=== PATIENT | male | born 1985 | race Caucasian/White ===

== ENCOUNTER 2021-03-21 01:53 | Observation (INO) | payer OTHER, SELFPAY ==
[2021-03-21] VITALS (13 sets, daily range): BP systolic 108–141; BP diastolic 66–105; PULSE 82–104; RESP 16–24; TEMP 36.4–36.9; O2SAT 93–98; BMI 44.9; BMI 45.8
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
[2021-03-21 02:25] LABS: Basophils % 0.2 % (0.1-2.0); Eosinophils # 0.5 K/mm3 (0.0-0.4); Hematocrit 38.7 % (42.0-52.0); Hemoglobin 13.1 g/dL (14.1-18.0); Lymphocytes # 2.6 K/mm3 (0.7-4.5); Mean Corpuscular HGB Conc 33.9 g/dL (31.8-35.4); Mean Corpuscular Hemoglobin 30.3 pg (27.0-31.2); Mean Corpuscular Volume 89.4 fl (80-94); Monocytes # 1.3 K/mm3 (0.1-1.0); Monocytes % 7.2 % (1.7-9.3); Neutrophils # 12.9 K/mm3 (1.8-7.8); Neutrophils % 74.6 % (37.0-80.0); Platelet Count 319 K/mm3 (142-424); Red Blood Count 4.32 M/mm3 (4.60-6.20); Red Cell Distribution Width 13.6 % (11.5-17.5); White Blood Count 17.2 K/mm3 (4.8-10.8)
--- NOTE | 2021-03-21 02:27 | PC.NURSE ---
pt gone to radiology
[2021-03-21 02:29] LABS: Alanine Aminotransferase 74 U/L (12-78); Albumin/Globulin Ratio 1.3 (1.1-1.8); Alkaline Phosphatase 101 U/L (38-126); Anion Gap 14.1 mEq/L (5-15); Aspartate Amino Transferase 45 U/L (17-59); Bilirubin,Total 0.3 mg/dl (0.2-1.3); Blood Urea Nitrogen 14 mg/dl (9-20); Calcium 8.4 mg/dl (8.4-10.2); Carbon Dioxide 21 mmol/L (22.0-30.0); Chloride 110 mmol/L (98-107); Creatinine Clearance Estimated 143 mL/min (50-200); Estimated Glomerular Filt Rate 109 ml/min (>60); GFR (African American) 132 ML/MIN (>60); Glucose 113 mg/dl (74-100); MANUAL DIFFERENTIAL MANUAL DIFFERENTIAL (MANUAL DIFF); Potassium 4.1 mmoL/L (3.5-5.1); Sodium 141 mmol/L (136-145)
[2021-03-21 02:34] LABS: C-Reactive Protein 131.9 mg/L (0-4)
[2021-03-21 02:47] LABS: Eosinophils % 4 % (0-3); Lymphocytes % 17 % (10-50); Monocytes % 17 % (2-9); Neutrophils % 59 % (42-76); Platelet Estimate Normal; RBC Morphology Normal; Total Cells Counted 100
[2021-03-21 02:49] LABS: Procalcitonin 0.121 ng/mL (0.0-2.0)
--- NOTE | 2021-03-21 02:51 | HMH.EDSKAF ---
ED Disposition Clinical Impression: Tobacco use, SIRS (systemic inflammatory response syndrome) Cellulitis Qualifiers: Site of cellulitis: extremity Site of cellulitis of extremity: lower extremity Laterality: right Qualified Code(s): L03.115 - Cellulitis of right lower limb Obesity Qualifiers: Obesity type: due to excess calories Obesity classification: adult class 3 (BMI >= 40) Serious obesity comorbidity presence: with serious comorbidity Body mass index: BMI 40.0-44.9 Qualified Code(s): E66.01 - Morbid (severe) obesity due to excess calories Disposition: Admitted as Observation Condition on Discharge: Serious - Critical Care Critical Care Time: No Attestation: On 03/21/21, the high probability of a clinically significant, sudden or life threatening deterioration of the following system(s) required my full and direct attention, intervention and personal management. The time I documented below is in addition to time spent performing reported procedures but includes the following listed in this critical care notation. Medical Decision Making - Medical Records Medical records reviewed: Yes: I reviewed the patient's medical records. - Simón Inquiry Pt receiving controlled substance: No Vital Signs: 03/21/21 02:05 03/21/21 02:30 03/21/21 03:00 Temperature 98.2 F Temperature Source Oral Pulse Rate 95 H 98 H Pulse Rate [Right] 85 Respiratory Rate 24 Blood Pressure 131/74 115/78 Blood Pressure [Right Arm] 141/97 H Blood Pressure Mean [Right Arm] 111 Blood Pressure Source [Right Arm] Automatic Cuff 02 Sat by Pulse Oximetry 94 L 94 L 94 L Oxygen Delivery Method Room Air - Lab Data Lab results reviewed: Yes: I reviewed the patient's lab results. Lab Results 03/21/21 01:54: WBC 17.2 H, RBC 4.32 L, Hgb 13.1 L, Hct 38.7 L, MCV 89.4, MCH 30.3, MCHC 33.9, RDW 13.6, Plt Count 319, MPV 8.0, Neut % (Auto) 74.6, Lymph % (Auto) 15.0, [place] % (Auto) 7.2, Eos % (Auto) 3.0, Baso % (Auto) 0.2, Neut # (Auto) 12.9 H, Lymph # (Auto) 2.6, [place] # (Auto) 1.3 H, Eos # (Auto) 0.5 H, Baso # (Auto) 0.0, Total Counted 100, Neutrophils % (Manual) 59, Lymphocytes % (Manual) 17, Atypical Lymphs % 3.0, Monocytes % (Manual) 17 H, Eosinophils % (Manual) 4 H, Platelet Estimate Normal, RBC Morphology Normal, ESR 56 H 03/21/21 01:54: Sodium 141, Potassium 4.1, Chloride 110 H, Carbon Dioxide 21 L, Anion Gap 14.1, BUN 14, Creatinine 0.80, Estimated Creat Clear 143, Estimated GFR 109, Est GFR ( Amer) 132, Glucose 113 H, Calcium 8.4, Total Bilirubin 0.3, AST 45, ALT 74, Alkaline Phosphatase 101, C-Reactive Protein 131.9 H, Total Protein 7.0, Albumin 4.0, Globulin 3.0, Albumin/Globulin Ratio 1.3, Procalcitonin 0.121 03/21/21 03:02: Lactate 1.1 Result diagrams: 03/21/21 01:54 03/21/21 01:54 Orders (Tests/Meds): ED MEDICATIONS Generic Name Dose Route Start Last Admin Trade Name Freq PRN Reason Stop Dose Admin Sodium Chloride 1,000 mls @ 999 mls/hr 03/21/21 02:00 03/21/21 02:01 Sod Chlor 0.9% 1000ml Bag IV 03/21/21 03:00 999 mls/hr .Q1H1M MARIOLA Administration Vancomycin HCl 2,000 mg/ 500 mls @ 125 mls/hr 03/21/21 03:15 03/21/21 03:25 Sodium Chloride IV 04/04/21 03:14 125 mls/hr Q24H MARIOLA Administration Protocol Nicotine 21 mg 03/21/21 03:12 03/21/21 03:12 Nicotine 21mg/24hr Patch TD 04/20/21 03:11 21 mg DAILYP PRN Administration Nicotine Cravings Discontinued Medications Generic Name Dose Route Start Last Admin Trade Name Freq PRN Reason Stop Dose Admin Hydromorphone HCl 1 mg 03/21/21 03:28 03/21/21 03:43 Hydromorphone 2mg/Ml Syringe IV 03/21/21 03:29 1 mg ONCE ONE Administration Vancomycin HCl 2,000 mg/ 250 mls @ 125 mls/hr 03/21/21 03:10 03/21/21 03:48 Sodium Chloride IV 04/04/21 03:09 Not Given Q12 [facility] Protocol Ketorolac Tromethamine 30 mg 03/21/21 01:58 03/21/21 02:01 Ketorolac 30mg/Ml Vial IV 03/21/21 01:59 30 mg ONCE ONE A
[2021-03-21 02:56] LABS: Erythrocyte Sedimentation Rate 56 mm/hr (0-15)
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
--- NOTE | 2021-03-21 03:22 | PC.NURSE ---
Vanco dosing per Night Watch.
--- NOTE | 2021-03-21 03:23 | PC.NURSE ---
Pt states his T-dap is current
[2021-03-21 03:28] LABS: Coronavirus 19, PCR Not Detected (NotDetected); Influenza A, PCR Not Detected (NotDetected); Influenza B, PCR Not Detected (NotDetected)
[2021-03-21 03:39] LABS: Lactic Acid 1.1 mmol/L (0.7-2.1)
--- NOTE | 2021-03-21 05:13 | PC.NURSE ---
patient up to floor via wheelchair.
--- NOTE | 2021-03-21 05:48 | PC.NURSE ---
LEFT INSIDE THIGH
--- NOTE | 2021-03-21 05:51 | PC.NURSE ---
RIGHT INSIDE CALF
[2021-03-21 06:17] LABS: Basophils % 0.2 % (0.1-2.0); Chloride 109 mmol/L (98-107); Eosinophils # 0.5 K/mm3 (0.0-0.4); Eosinophils % 3.3 % (0.1-12.0); Hematocrit 35.4 % (42.0-52.0); Hemoglobin 11.8 g/dL (14.1-18.0); Lymphocytes # 2.2 K/mm3 (0.7-4.5); Lymphocytes % 15.1 % (10-50); Mean Corpuscular HGB Conc 33.5 g/dL (31.8-35.4); Mean Corpuscular Hemoglobin 30.7 pg (27.0-31.2); Mean Corpuscular Volume 91.8 fl (80-94); Mean Platelet Volume 8.1 fl (7.4-10.4); Neutrophils # 10.6 K/mm3 (1.8-7.8); Neutrophils % 74.4 % (37.0-80.0); Platelet Count 299 K/mm3 (142-424); Potassium 4.3 mmoL/L (3.5-5.1); Red Blood Count 3.85 M/mm3 (4.60-6.20); Red Cell Distribution Width 13.5 % (11.5-17.5); Sodium 139 mmol/L (136-145); White Blood Count 14.2 K/mm3 (4.8-10.8)
[2021-03-21 06:20] LABS: Anion Gap 13.3 mEq/L (5-15); Blood Urea Nitrogen 13 mg/dl (9-20); Carbon Dioxide 21 mmol/L (22.0-30.0); Creatinine Clearance Estimated 159 mL/min (50-200); Estimated Glomerular Filt Rate 127 ml/min (>60); GFR (African American) 154 ML/MIN (>60); Glucose 108 mg/dl (74-100)
--- NOTE | 2021-03-21 07:14 | HMH.PHAVTE ---
[facility] Pharmacy VTE Monitoring - Patient Demographics Admission date: 03/21/21 Report Date: 03/21/21 Time: 07:14 Allergies/Adverse Reactions: Patient Allergies morphine Allergy (Verified 03/21/21 01:56) Penicillins Allergy (Verified 03/21/21 01:56) Height: 1.85 m Weight: 156.745 kg Patient Problems: Current Active Problems Cellulitis (Acute) Obesity (Acute) Tobacco use (Acute) SIRS (systemic inflammatory response syndrome) (Acute) - VTE Risk Labs: VTE Related Lab Results Hgb 11.8 g/dL (14.1-18.0) L 03/21/21 05:53 Hct 35.4 % (42.0-52.0) L 03/21/21 05:53 Plt Count 299 K/mm3 (142-424) 03/21/21 05:53 BUN 13 mg/dl (9-20) 03/21/21 05:53 Creatinine 0.70 mg/dl (0.66-1.25) 03/21/21 05:53 Estimated Creat Clear 159 mL/min (50-200) 03/21/21 05:53 Was VTE Risk Assessment Performed: Yes VTE Score: 1 VTE Risk Level: Very Low Risk - Prophylaxis VTE Prophylaxis Ordered?: Yes Types of VTE Prophylaxis: TEDS Knee High Location of Applied Device: Left Leg
--- NOTE | 2021-03-21 07:15 | HMH.PHAINT ---
MEDICATION RECONCILIATION COMPLETED ON PATIENT USING EXTERNAL FILL HISTORY FROM PHARMACY. -DAWN ANNE, MILLID
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
[2021-03-22] VITALS (10 sets, daily range): BP systolic 140–154; BP diastolic 76–100; PULSE 84–98; RESP 16–24; TEMP 36.5–36.8; O2SAT 94–96; BMI 45.8
--- NOTE | 2021-03-22 03:43 | PC.NURSE ---
pt has had no acute changes. c/o of pain throughout shift. but rating at a lower scale than previously. 03/17. iv patent and infusing per order. ambulates to bathroom. ice packs were applied to help alleviate pain to bilateral legs. pt reports this did provide some relief. prn meds given per dec. call light in reach. will continue to monitor
[2021-03-22 06:40] LABS: Basophils % 0.3 % (0.1-2.0); Eosinophils # 0.3 K/mm3 (0.0-0.4); Eosinophils % 3.3 % (0.1-12.0); Hematocrit 35.5 % (42.0-52.0); Hemoglobin 11.5 g/dL (14.1-18.0); Lymphocytes # 1.3 K/mm3 (0.7-4.5); Lymphocytes % 15.4 % (10-50); Mean Corpuscular HGB Conc 32.5 g/dL (31.8-35.4); Mean Corpuscular Hemoglobin 30.6 pg (27.0-31.2); Mean Corpuscular Volume 94.2 fl (80-94); Mean Platelet Volume 7.9 fl (7.4-10.4); Monocytes # 0.6 K/mm3 (0.1-1.0); Monocytes % 7.8 % (1.7-9.3); Neutrophils % 73.3 % (37.0-80.0); Platelet Count 258 K/mm3 (142-424); Red Blood Count 3.77 M/mm3 (4.60-6.20); Red Cell Distribution Width 13.5 % (11.5-17.5); White Blood Count 8.2 K/mm3 (4.8-10.8)
[2021-03-22 06:56] LABS: Chloride 106 mmol/L (98-107); Potassium 3.9 mmoL/L (3.5-5.1); Sodium 136 mmol/L (136-145)
[2021-03-22 06:59] LABS: Anion Gap 7.9 mEq/L (5-15); Blood Urea Nitrogen 14 mg/dl (9-20); Calcium 8.1 mg/dl (8.4-10.2); Carbon Dioxide 26 mmol/L (22.0-30.0); Creatinine Clearance Estimated 139 mL/min (50-200); Estimated Glomerular Filt Rate 109 ml/min (>60); GFR (African American) 132 ML/MIN (>60); Glucose 119 mg/dl (74-100)
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
[2021-03-22 14:43] LABS: Chloride 106 mmol/L (98-107); Potassium 4.4 mmoL/L (3.5-5.1); Sodium 139 mmol/L (136-145)
[2021-03-22 14:45] LABS: Blood Urea Nitrogen 14 mg/dl (9-20); Creatinine Clearance Estimated 159 mL/min (50-200); Estimated Glomerular Filt Rate 127 ml/min (>60); GFR (African American) 154 ML/MIN (>60)
[2021-03-22 14:46] LABS: Anion Gap 9.4 mEq/L (5-15); Calcium 8.3 mg/dl (8.4-10.2); Carbon Dioxide 28 mmol/L (22.0-30.0); Glucose 111 mg/dl (74-100)
[2021-03-22 15:35] LABS: Vancomycin,Trough 7.6 ug/mL (5.0-10.0)
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
--- NOTE | 2021-03-22 16:53 | PC.NURSE ---
patient is receiving blood pressure medicine tonight - nurse looked over
[2021-03-23 01:43] VITALS: RESP 20
--- NOTE | 2021-03-23 03:55 | PC.NURSE ---
no acute changes. pt has been requesting pain medication. on first assessment pt rated 10/10. has decreased to 7/10 for highest pain level. prn meds given per request. iv patent and infusing. vss. call light in reach. will continue to monitor
[2021-03-23 04:00] VITALS: BP 140/77; PULSE 88; RESP 18; TEMP 37.1; O2SAT 96
[2021-03-23 05:06] VITALS: RESP 22
[2021-03-23 05:22] VITALS: BMI 46.0
[2021-03-23 08:00] VITALS: BP 121/74; PULSE 89; RESP 16; TEMP 36.7; O2SAT 97
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
[2021-03-23 08:41] VITALS: RESP 20
[2021-03-23 13:09] VITALS: RESP 16
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
== END 2021-03-23 15:30 | disposition home or self-care (01) ==
LOC: ER 03:19 → 2ND 03:24
PROVIDERS: Admitting Provider Family Medicine; Emergency Provider Emergency Medicine; Visit Provider Family Medicine
DX: M79.661 Pain in right lower leg (principal); M79.662 Pain in left lower leg; F17.210 Nicotine dependence, cigarettes, uncomplicated; L03.115 Cellulitis of right lower limb; L03.116 Cellulitis of left lower limb; V29.9XXA Motorcycle rider (driver) (passenger) injured in unspecified traffic accident, initial encounter; E66.01 Morbid (severe) obesity due to excess calories; Z68.41 Body mass index [BMI] 40.0-44.9, adult
CPT/HCPCS: 36415; 71046; 72170; 73564; 80048; 80053; 80202; 83605; 84145; 85007; 85025; 85651; 86140; 87040; 93306; 93308; 93970; 96365; 96367; 96375; 99284; G0378; J2405; J3370; U0003

== ENCOUNTER 2021-03-23 20:49 | Emergency (ER) | payer OTHER, SELFPAY ==
[2021-03-23 22:24] VITALS: BP 139/89; PULSE 109; RESP 16; TEMP 36.7; O2SAT 95; BMI 44.9
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
[2021-03-23 22:44] VITALS: BP 142/84; PULSE 98; RESP 18; TEMP 36.7; O2SAT 97
--- NOTE | 2021-03-23 22:47 | PC.NURSE ---
Pt has multiple wounds on bilateral lower ext. and right elbow. All wounds cleaned with Hibicolens soap and redressed with Kerlex and mesh covering. Wounds are pink without drainage.
== END 2021-03-23 22:50 | disposition home or self-care (01) ==
PROVIDERS: Emergency Provider Emergency Medicine
DX: L03.115 Cellulitis of right lower limb (principal); L03.116 Cellulitis of left lower limb; V29.9XXA Motorcycle rider (driver) (passenger) injured in unspecified traffic accident, initial encounter; F17.210 Nicotine dependence, cigarettes, uncomplicated
CPT/HCPCS: 99203; G0463

== ENCOUNTER 2023-08-03 14:05 | Emergency (ER) | payer OTHER, SELFPAY ==
[2023-08-03 14:06] VITALS: BP 134/87; PULSE 86; RESP 18; TEMP 36.7; O2SAT 93; BMI 48.7
--- NOTE | 2023-08-03 14:24 | ECG_ITS ---
APPROVED REPORT Exam: Resting ECG HR:79 bpm ECG Measurements Heart Rate 79 AXES LA 170 P 4 QRSd 95 QRS 6 QT 350 T 63 QTc 385 Conclusion SINUS RHYTHM NORMAL ECG UNCONFIRMED REPORT Electronically signed by : Jm Apodaca MD 08/03/2023 17:02:58
--- NOTE | 2023-08-03 14:38 | PC.NURSE ---
PT PROVIDED A PILLOW FOR COMFORT, NO FURTHER NEEDS AT THIS TIME
--- NOTE | 2023-08-03 15:06 | PC.NURSE ---
DR SPEAR AT BEDSIDE
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
--- NOTE | 2023-08-03 15:15 | HMH.EDGENADL ---
Discharge Plan Disposition Patient Disposition: Home, Self-Care Prescriptions Prescriptions: New clindamycin HCl 150 mg capsule 450 mg PO Q8H 7 Days Qty: 63 0RF losartan 100 mg tablet 100 mg PO DAILY Qty: 30 0RF ibuprofen 800 mg tablet 800 mg PO TID PRN (Reason: pain) 7 Days Qty: 20 0RF prednisone 50 mg tablet 50 mg PO DAILY 5 Days Qty: 5 0RF Rx Instructions: Please begin 1 day after ED visit cyclobenzaprine 5 mg tablet 5 mg PO TID PRN (Reason: muscle spasm) 5 Days Qty: 15 0RF No Action ibuprofen 800 MG tablet 800 mg PO Q8HP PRN (Reason: Moderate Pain) clindamycin HCl 300 MG capsule 300 mg PO TID Qty: 21 0RF oxycodone-acetaminophen 1 EACH tablet 1 tab PO Q6H PRN (Reason: Moderate To Severe Pain) Qty: 12 0RF Referrals Follow up/Referrals: Vitaliy Back APRN [Primary Care Provider] - See instructions Activity Restrictions/Add. Instructions Additional Instructions/Restrictions: Follow-up with physical therapy and with your primary care doctor regarding your back pain. Follow-up with dentist regarding your dental pain and facial cellulitis. Return with any worsening symptoms. Clinical Impressions Clinical Impression: Sciatica, Lumbar strain, Pulpitis, Cellulitis of face, Hypertension Instructions Patient Instructions: DI for Low Back Pain Discharge ED Provider: Jose Veras General Adult HPI General Chief complaint: Back Pain/Injury Stated complaint: ON AND OFF CHEST PAINS, LOWER BACK PAIN Time Seen by Provider: 08/03/23 15:05 Mode of Arrival: Wheelchair Source of Information: Patient Limitations: No Limitations Description of Symptoms (Recalled from ER Triage Doc. by RN): Patient states that approx 10 days ago he helped a friend with a roof and thinks that he may have pulled something in his lower back. Complaint of right lower back pain that radiates down his leg. States that it is just continuing to get worse. History of Present Illness HPI narrative: Patient is a 38-year-old male here with multiple complaints. Primarily here for back pain. States that he was working on a roof and strained his lower back and since that time has had severe pain went to [facility] emergency department where he had a lumbar spine x-ray which was told to be normal. Denies any lower extremity paralysis denies any saddle anesthesia no bowel or bladder incontinence or urinary retention. No history of injection drug use no history of cancer. States his pain has been so bad he was been able to get to his primary care doctor for other concerns including refill of his blood pressure medication including losartan 100 mg. Also he has pain and swelling over one of his maxillary molars and facial swelling and tenderness which he asked me to take a look at as well. States he has a good relation with his primary care doctor but the pain is kept him from being able to go to an appointment recently. Denies any other significant medical problems. Related Data Home Medications Medication Instructions Recorded Confirmed ibuprofen 800 mg tablet 800 mg PO Q8HP PRN Moderate Pain 03/21/21 03/21/21 Previous Rx's Medication Instructions Recorded clindamycin HCl 300 mg capsule 300 mg PO TID #21 caps 03/23/21 oxycodone-acetaminophen 10 mg-325 1 tab PO Q6H PRN Moderate To 03/23/21 mg tablet Severe Pain #12 tabs clindamycin HCl 150 mg capsule 450 mg PO Q8H 7 days #63 caps 08/03/23 cyclobenzaprine 5 mg tablet 5 mg PO TID PRN muscle spasm 5 08/03/23 days #15 tabs ibuprofen 800 mg tablet 800 mg PO TID PRN pain 7 days #20 08/03/23 tabs losartan 100 mg tablet 100 mg PO DAILY #30 tabs 08/03/23 prednisone 50 mg tablet 50 mg PO DAILY 5 days #5 tabs 08/03/23 Allergies Allergy/AdvReac Type Severity Reaction Status Date / Time morphine Allergy Verified 03/21/21 01:56 Penicillins Allergy Verified 03/21/21 01:56 [facility] Disclaimer: The information contained in this section may bain
[2023-08-03 17:10] VITALS: BP 134/98; PULSE 75; RESP 18; TEMP 36.8; O2SAT 97
== END 2023-08-03 17:10 | disposition home or self-care (01) ==
PROVIDERS: Emergency Provider Emergency Medicine; PCP Nurse Practitioner
DX: S39.012A Strain of muscle, fascia and tendon of lower back, initial encounter (principal); M54.30 Sciatica, unspecified side; L03.211 Cellulitis of face; I10 Essential (primary) hypertension; K04.01 Reversible pulpitis; F17.210 Nicotine dependence, cigarettes, uncomplicated; X50.0XXA Overexertion from strenuous movement or load, initial encounter
CPT/HCPCS: 72131; 93005; 96372; 99284

== ENCOUNTER 2024-07-23 19:50 | Emergency (ER) | payer OTHER, SELFPAY ==
--- NOTE | 2024-07-23 19:48 | ECG_ITS ---
APPROVED REPORT Exam: Resting ECG HR:95 bpm ECG Measurements Heart Rate 95 AXES FL 171 P 25 QRSd 86 QRS -8 QT 324 T 55 QTc 377 Conclusion SINUS RHYTHM ABNORMAL ECG UNCONFIRMED REPORT Electronically signed by : ROXI JORDAN, 07/24/2024 00:17:07
[2024-07-23 19:51] VITALS: BP 151/97; PULSE 104; RESP 18; TEMP 36.6; O2SAT 96; BMI 48.7
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
--- NOTE | 2024-07-23 20:04 | CT_ITS ---
PROCEDURE INFORMATION: Exam: CTA Chest With Contrast Exam date and time: 07/23/2024 9:08 PM Age: 39 years old Clinical indication: Pain; Chest pressure; Additional info: Acute chest pain acute abdominal pain TECHNIQUE: Imaging protocol: Computed tomographic angiography of the chest with contrast. Exam focused on the arteries. 3D rendering (Not supervised by radiologist): MIP and/or 3D reconstructed images were created by the technologist. Radiation optimization: All CT scans at this facility use at least one of these dose optimization techniques: automated exposure control; mA and/or kV adjustment per patient size (includes targeted exams where dose is matched to clinical indication); or iterative reconstruction. Contrast material: ISOVUE; Contrast volume: 80 ml; Contrast route: INTRAVENOUS (IV); COMPARISON: 1. CR XR CHEST 2V 03/21/2021 3:[address] ABDOMEN PELVIS W CON 07/23/2024 9:08 PM 3. CA VENOUS DOPPLER UE BI 03/21/2021 2:24 PM FINDINGS: Pulmonary arteries: There is dilation of the main pulmonary artery as well as the major branch pulmonary arteries. This may reflect underlying pulmonary hypertension. There is no evidence for clinically relevant pulmonary arterial filling defect. Tiny distal filling defects may be present but are of dubious clinical significance. Aorta: Unremarkable. No aortic aneurysm. No aortic dissection. Lungs: There is some scarring at the lung bases. There is mild dependent consolidative change in the medial right lower lobe which could reflect early or resolving infection. Pleural spaces: Unremarkable. No pneumothorax. No pleural effusion. Heart: There is a small pericardial effusion. Lymph nodes: There are mildly prominent mediastinal lymph nodes which are nonenlarged. There are calcified mediastinal lymph nodes likely reflecting prior granulomatous disease. Intraperitoneal space: Please see the dedicated interpretation of abdomen and pelvis for findings in that region. Bones/joints: Unremarkable. No acute fracture. Soft tissues: There is bilateral gynecomastia. IMPRESSION: 1. There is mild dependent consolidative change in the medial right lower lobe which could reflect early or resolving infection. 2. Please see the dedicated interpretation of abdomen and pelvis for findings in that region. 3. Findings which suggest underlying pulmonary arterial hypertension. 4. No evidence for clinically relevant pulmonary arterial filling defect.
--- NOTE | 2024-07-23 20:04 | CT_ITS ---
PROCEDURE INFORMATION: Exam: CT Abdomen And Pelvis With Contrast Exam date and time: 07/23/2024 9:08 PM Age: 39 years old Clinical indication: Abdominal pain; Additional info: Acute chest pain acute abdominal pain TECHNIQUE: Imaging protocol: Computed tomography of the abdomen and pelvis with contrast. 3D rendering (Not supervised by radiologist): MIP and/or 3D reconstructed images were created by the technologist. Radiation optimization: All CT scans at this facility use at least one of these dose optimization techniques: automated exposure control; mA and/or kV adjustment per patient size (includes targeted exams where dose is matched to clinical indication); or iterative reconstruction. Contrast material: ISOVUE; Contrast volume: 80 ml; Contrast route: IV; COMPARISON: 1. CR XR PELVIS 1-2V 03/21/2021 3:[address] ANGIO CHEST PE PROTOCOL 07/23/2024 9:[address] LUMBAR SPINE WO CON 08/03/2023 3:39 PM FINDINGS: Lungs: There is some scarring at the lung bases which is nonspecific. Liver: Normal. Gallbladder and biliary ducts: No acute process. Pancreas: There is fatty replacement of the pancreas. Spleen: Normal. Adrenal glands: The adrenal glands appear normal. Kidneys and ureters: There are no soft tissue renal masses or hydronephrosis. Stomach and bowel: There is large volume stool throughout the colon. Appendix: No evidence of appendicitis. Intraperitoneal space: Unremarkable. Vasculature: The abdominal aorta and its major branches appear normal without evidence of aneurysm or stenosis. There are pelvic phleboliths. Lymph nodes: No lymphadenopathy. Urinary bladder: Unremarkable as visualized. Reproductive: No acute process. Bones/joints: The visualized osseous structures of the abdomen and pelvis appear normal for patient age. Soft tissues: There is mild soft tissue dependent edema in the subcutaneous regions. There are fat containing bilateral inguinal hernias. IMPRESSION: No acute inflammatory or obstructive process is identified. Incidental findings are described within the findings section.
[2024-07-23] MEDS: BELLADONNA ALKALOIDS 60 ML ML PO (20:11)
[2024-07-23] MEDS: KETOROLAC 30MG/ML VIAL 15 MG IV (20:11)
[2024-07-23] MEDS: ACETAMINOPHEN 500MG TAB 1000 MG PO (20:11)
[2024-07-23 20:15] LABS: Basophils # 0.1 K/mm3 (0-0.2); Basophils % 0.6 % (0.1-2.0); Eosinophils # 0.5 K/mm3 (0.0-0.4); Eosinophils % 3.4 % (0.1-12.0); Hematocrit 45.6 % (42.0-52.0); Hemoglobin 15.1 g/dL (14.1-18.0); Lymphocytes # 2.6 K/mm3 (0.7-4.5); Lymphocytes % 18.4 % (10-50); Mean Corpuscular HGB Conc 33.1 g/dL (31.8-35.4); Mean Corpuscular Hemoglobin 30.4 pg (27.0-31.2); Mean Corpuscular Volume 91.8 fl (80-94); Mean Platelet Volume 7.9 fl (7.4-10.4); Monocytes % 6.8 % (1.7-9.3); Neutrophils # 10.1 K/mm3 (1.8-7.8); Neutrophils % 70.7 % (37.0-80.0); Platelet Count 315 K/mm3 (142-424); Red Blood Count 4.97 M/mm3 (4.60-6.20); Red Cell Distribution Width 13.6 % (11.5-17.5); White Blood Count 14.3 K/mm3 (4.8-10.8)
[2024-07-23 20:20] LABS: INR 0.94 (0.9-1.1); Prothrombin Time 10.6 seconds (10.1-12.5)
[2024-07-23 20:21] LABS: Alanine Aminotransferase 36 U/L (12-78); Albumin Level 4.5 g/dl (3.5-5.0); Albumin/Globulin Ratio 1.6 (1.1-1.8); Alkaline Phosphatase 72 U/L (38-126); Anion Gap 6.5 mEq/L (5-15); Aspartate Amino Transferase 29 U/L (17-59); Bilirubin,Total 0.5 mg/dl (0.2-1.3); Blood Urea Nitrogen 23 mg/dl (9-20); Calcium 9.2 mg/dl (8.4-10.2); Carbon Dioxide 30 mmol/L (22.0-30.0); Chloride 104 mmol/L (98-107); Creatinine Clearance Estimated 163 mL/min (50-200); Estimated Glomerular Filt Rate 125 ml/min (>60); GFR (African American) 151 ML/MIN (>60); Globulin 2.9 g/dL (1.3-3.2); Glucose 103 mg/dl (74-100); Potassium 4.5 mmoL/L (3.5-5.1); Sodium 136 mmol/L (136-145); Total Protein,Serum 7.4 g/dl (6.3-8.2)
[2024-07-23 20:37] LABS: Troponin I < 0.01 ng/ml (0.00-0.034)
[2024-07-23 20:55] LABS: Lipase 339 U/L (23-300)
[2024-07-23 21:05] LABS: NT Pro Brain Natriuretic Pep. < 20.0 pg/mL (0-125)
[2024-07-23] MEDS: SODIUM CHLORIDE 0.9% 10ML SYR (RAD ONLY) 10 ML IV (21:10)
[2024-07-23] MEDS: 0.9 % SODIUM CHLORIDE 50 ML VIAL IV (21:10)
[2024-07-23] MEDS: IOPAMIDOL-370 (76%);100ML BOTTLE 80 ML IV (21:10)
[2024-07-23 21:27] LABS: Microscopic, Urine URINE MICROSCOPIC (MICROSCOPIC)
[2024-07-23 21:28] LABS: Appearance,Urine CLEAR (Clear); Bilirubin,Urine Negative (Negative); Blood, Urine TRACE-I (Negative); Color,Urine YELLOW (Yellow); Glucose,Urine (UA) Negative (Negative); Ketones,Urine Negative (Negative); Leukocyte Esterase,Urine Negative (Negative); Nitrate,Urine Negative (Negative); Protein,Urine Negative (Negative); Specific Gravity, Urine 1.025 (1.005-1.030); Urobilinogen,Urine 0.2 EU/dl (0.2)
[2024-07-23 21:39] LABS: Bacteria,Urine Trace /lpf; Mucus,Urine Trace /lpf; RBC,Urine Occasional #/hpf (0-3); WBC,Urine Occasional #/hpf (0-3)
[2024-07-23] MEDS: HYDROMORPHONE 2MG/ML SYRINGE 0.5 MG IV (21:51)
[2024-07-23] MEDS: 0.9 % SODIUM CHLORIDE 1000ML 1,000 ML 999 ML IV (21:51)
[2024-07-23 22:42] VITALS: BP 133/94; PULSE 85; RESP 18; TEMP 36.8; O2SAT 95
[2024-07-23 22:45] VITALS: BP 133/94; PULSE 93; RESP 20; TEMP 36.7; O2SAT 95
== END 2024-07-23 22:46 | disposition home or self-care (01) ==
PROVIDERS: Physician Assistant; Emergency Provider Emergency Medicine; PCP Nurse Practitioner
DX: K85.90 Acute pancreatitis without necrosis or infection, unspecified (principal); R07.9 Chest pain, unspecified
CPT/HCPCS: 71275; 74177; 80053; 81001; 83690; 83880; 84484; 85025; 85610; 93005; 96361; 96374; 96375; 99285; J1171; J1885; J7030; Q9967

== ENCOUNTER 2024-09-10 14:35 | Outpatient (CLI) | payer OTHER, SELFPAY ==
[2024-09-10 15:09] LABS: Basophils # 0.1 K/mm3 (0-0.2); Basophils % 0.7 % (0.1-2.0); Eosinophils # 0.5 K/mm3 (0.0-0.4); Eosinophils % 4.1 % (0.1-12.0); Hematocrit 44.9 % (42.0-52.0); Hemoglobin 15.1 g/dL (14.1-18.0); Lymphocytes # 2.6 K/mm3 (0.7-4.5); Lymphocytes % 23.5 % (10-50); Mean Corpuscular HGB Conc 33.7 g/dL (31.8-35.4); Mean Corpuscular Hemoglobin 30.7 pg (27.0-31.2); Mean Corpuscular Volume 91.3 fl (80-94); Mean Platelet Volume 8.1 fl (7.4-10.4); Monocytes # 0.7 K/mm3 (0.1-1.0); Monocytes % 6.6 % (1.7-9.3); Neutrophils # 7.3 K/mm3 (1.8-7.8); Platelet Count 304 K/mm3 (142-424); Red Blood Count 4.92 M/mm3 (4.60-6.20); Red Cell Distribution Width 13.5 % (11.5-17.5); White Blood Count 11.2 K/mm3 (4.8-10.8)
[2024-09-10 16:16] LABS: Albumin Level 4.4 g/dl (3.5-5.0); Chloride 102 mmol/L (98-107); Potassium 4.7 mmoL/L (3.5-5.1); Sodium 138 mmol/L (136-145)
[2024-09-10 16:18] LABS: Blood Urea Nitrogen 23 mg/dl (9-20); Estimated Glomerular Filt Rate 125 ml/min (>60); GFR (African American) 151 ML/MIN (>60)
[2024-09-10 16:19] LABS: Alanine Aminotransferase 33 U/L (12-78); Alkaline Phosphatase 94 U/L (38-126); Anion Gap 10.7 mEq/L (5-15); Aspartate Amino Transferase 29 U/L (17-59); Bilirubin,Direct 0.3 mg/dl (0.0-0.4); Bilirubin,Total 0.3 mg/dl (0.2-1.3); Calcium 9.5 mg/dl (8.4-10.2); Carbon Dioxide 30 mmol/L (22.0-30.0); Cholesterol 163 mg/dl (140-200); Glucose 87 mg/dl (74-100); Magnesium 2.1 mg/dl (1.6-2.3); Total Protein,Serum 6.7 g/dl (6.3-8.2); Triglycerides 124 mg/dl (30-150); VLDL Cholesterol 25 mg/dL (0-40)
[2024-09-10 16:20] LABS: Chol/HDL Ratio 3.6 (1-3.5); HDL Cholesterol 45 mg/dl (40-60)
[2024-09-10 16:29] LABS: NT Pro Brain Natriuretic Pep. < 20.0 pg/mL (0-125)
[2024-09-10 16:36] LABS: Direct LDL Cholesterol 93.29 mg/dL (100-129)
[2024-09-10 16:37] LABS: Free T4 (Free Thyroxine) 1.32 ng/dl (0.78-2.19)
[2024-09-10 16:50] LABS: Thyroid Stimulating Hormone 1.01 uIU/mL (0.465-4.68)
== END 2024-09-10 23:59 | disposition home or self-care (01) ==
LOC: LAB 14:37
PROVIDERS: Nurse Practitioner Family; PCP Nurse Practitioner; Visit Provider Internal Medicine
DX: R06.09 Other forms of dyspnea (principal); R07.9 Chest pain, unspecified; R00.2 Palpitations; R94.31 Abnormal electrocardiogram [ECG] [EKG]; I10 Essential (primary) hypertension
CPT/HCPCS: 36415; 80048; 80061; 80076; 83735; 83880; 84439; 84443; 85025

== ENCOUNTER → 2024-12-08 06:57 | Outpatient (CLI) | payer OTHER, SELFPAY | LOC: SL 12-11 06:58 | PROVIDERS: PCP Nurse Practitioner Family; Visit Provider Nurse Practitioner Family | DX: G47.33 Obstructive sleep apnea (adult) (pediatric) (principal); R06.83 Snoring; R40.0 Somnolence | CPT/HCPCS: G0399 ==

== ENCOUNTER 2025-01-05 12:41 | Outpatient (CLI) | payer OTHER, SELFPAY ==
--- NOTE | 2025-01-05 12:41 | US_ITS ---
PROCEDURE INFORMATION: Exam: US Right Breast, Complete US Left Breast, Complete MG Bilateral Diagnostic Breast Tomosynthesis Exam date and time: 01/05/2025 2:50 PM Age: 39 years old Clinical indication: Bilateral breast palpable lumps TECHNIQUE: Imaging protocol: Complete ultrasound of all four quadrants of the right breast and the retroareolar regions, including ultrasound of the axilla when performed. Complete ultrasound of all four quadrants of the left breast and the retroareolar regions, including ultrasound of the axilla when performed. Bilateral Diagnostic tomosynthesis and 2D mammography including computer-aided detection (CAD) when performed. Unilateral or bilateral exam. COMPARISON: MG MM DIG MAMM BI DX W/CAD 01/05/2025 2:20 PM FINDINGS: MAMMOGRAPHY: Breast composition: The breasts are almost entirely fatty. Breast mammogram findings: There is almost no breast tissue seen. There is no stellate mass, architectural distortion or suspicious microcalcifications in either breast to suggest malignancy. No skin thickening or axillary adenopathy. ULTRASOUND: Breast ultrasound findings: Sonographic images of both breasts including the retroareolar regions, all 4 quadrants and the axilla do not demonstrate any solid or cystic masses. Adipose tissue only seen very minimal nonspecific hypoechoic tissue is noted in both retroareolar regions consistent with minimal benign gynecomastia. No architectural distortion or acoustical shadowing. No skin thickening or axillary adenopathy. IMPRESSION: 1. Palpable abnormalities bilaterally corresponding mammographically and sonographically to adipose tissue only.Further evaluation of a palpable abnormality should be based on clinical grounds regardless of radiographic findings or lack thereof. 2. Minimal retroareolar benign gynecomastia bilaterally. ASSESSMENT: BI-RADS Category 2: Benign.
--- NOTE | 2025-01-05 12:41 | CT_ITS ---
FINAL REPORT TECHNIQUE: After the administration of intravenous contrast, axial images through the chest were performed by computed tomography.This study was performed with techniques to keep radiation doses as low as reasonably achievable, (ALARA). Individualized dose reduction techniques using automated exposure control or adjustment of mA and/or kV according to the patient''s size were employed. CLINICAL HISTORY: f/u abnormal chest CT COMPARISON: On FINDINGS: There is no axillary adenopathy. There is no hilar or mediastinal adenopathy. The heart size is normal. There is no pericardial or pleural effusion. Limited images of the upper abdomen are unremarkable. There is mild right lower lobe scarring. No suspicious infiltrate or nodule identified. IMPRESSION: No acute lung disease or evidence of neoplasm. Reviewed, Interpreted and Dictated by Woody Garrido MD Transcribed by Janice Araujo Authenticated and [facility]
[2025-01-05 13:14] LABS: Basophils % 0.3 % (0.1-2.0); Eosinophils # 0.3 K/mm3 (0.0-0.4); Eosinophils % 2.9 % (0.1-12.0); Hematocrit 44.9 % (42.0-52.0); Hemoglobin 15.2 g/dL (14.1-18.0); Lymphocytes # 2.3 K/mm3 (0.7-4.5); Lymphocytes % 19.5 % (10-50); Mean Corpuscular HGB Conc 33.9 g/dL (31.8-35.4); Mean Corpuscular Hemoglobin 29.9 pg (27.0-31.2); Mean Corpuscular Volume 88.4 fl (80-94); Mean Platelet Volume 10.1 fl (7.4-10.4); Monocytes # 1.1 K/mm3 (0.1-1.0); Monocytes % 9.9 % (1.7-9.3); Neutrophils # 7.8 K/mm3 (1.8-7.8); Neutrophils % 67.4 % (37.0-80.0); Platelet Count 369 K/mm3 (142-424); Red Blood Count 5.08 M/mm3 (4.60-6.20); Red Cell Distribution Width 12.9 % (11.5-17.5); White Blood Count 11.6 K/mm3 (4.8-10.8)
[2025-01-05 13:27] LABS: Chloride 96 mmol/L (98-107); Potassium 4.3 mmoL/L (3.5-5.1); Sodium 139 mmol/L (136-145)
[2025-01-05 13:29] LABS: Blood Urea Nitrogen 17 mg/dl (9-20); Estimated Glomerular Filt Rate 125 ml/min (>60); GFR (African American) 151 ML/MIN (>60)
[2025-01-05 13:29] LABS: Blood Urea Nitrogen 18 mg/dl (9-20); Estimated Glomerular Filt Rate 125 ml/min (>60); GFR (African American) 151 ML/MIN (>60)
[2025-01-05 13:30] LABS: Alanine Aminotransferase 34 U/L (12-78); Alkaline Phosphatase 91 U/L (38-126); Anion Gap 13.3 mEq/L (5-15); Aspartate Amino Transferase 23 U/L (17-59); Bilirubin,Indirect 0.5 mg/dL (0.0-0.9); Bilirubin,Total 0.5 mg/dl (0.2-1.3); Bilirubin,Unconjugated 0.4 mg/dL (0.0-1.1); Calcium 9.4 mg/dl (8.4-10.2); Carbon Dioxide 34 mmol/L (22.0-30.0); Chol/HDL Ratio 3.6 (1-3.5); Cholesterol 190 mg/dl (140-200); Glucose 105 mg/dl (74-100); HDL Cholesterol 53 mg/dl (40-60); Total Protein,Serum 7.3 g/dl (6.3-8.2); Triglycerides 153 mg/dl (30-150); VLDL Cholesterol 31 mg/dL (0-40)
[2025-01-05 13:43] LABS: Direct LDL Cholesterol 103.38 mg/dL (100-129); NT Pro Brain Natriuretic Pep. < 20.0 pg/mL (0-125)
[2025-01-05 13:52] LABS: Free T4 (Free Thyroxine) 1.39 ng/dl (0.78-2.19)
[2025-01-05 14:01] LABS: Thyroid Stimulating Hormone 0.64 uIU/mL (0.465-4.68)
[2025-01-05] MEDS: IOPAMIDOL-370 (76%);100ML BOTTLE 75 ML IV (14:01)
[2025-01-05] MEDS: SODIUM CHLORIDE 0.9% 10ML SYR (RAD ONLY) 10 ML IV (14:01)
== END 2025-01-05 23:59 | disposition home or self-care (01) ==
LOC: RAD 12:41
PROVIDERS: Nurse Practitioner Family; PCP Nurse Practitioner; Visit Provider Nurse Practitioner
DX: D48.61 Neoplasm of uncertain behavior of right breast (principal); D48.62 Neoplasm of uncertain behavior of left breast; R93.89 Abnormal findings on diagnostic imaging of other specified body structures; R60.0 Localized edema; R06.09 Other forms of dyspnea; I27.20 Pulmonary hypertension, unspecified
CPT/HCPCS: 36415; 71260; 76641; 77062; 77066; 80048; 80061; 80076; 82565; 83880; 84439; 84443; 84520; 85025; G0279; Q9967

== ENCOUNTER 2025-01-21 08:24 | Outpatient (CLI) | payer OTHER, SELFPAY ==
[2025-01-12 08:23] VITALS: BMI 60.0
--- NOTE | 2025-01-21 08:27 | CA_ITS ---
APPROVED REPORT EXAM: Comprehensive 2D, Doppler, and color-flow Echocardiogram with contrast Business Department Chair: Genoveva Guzmán CRT Ht: 6 ft 1 in Wt: 455lbs BSA: 3.05 BP: 153/98 mmHg Indications: Edema, sob, smoker, ISIAH, HTN Echo Enhancing Agent Indication: Endocardial border delineation Agent(s) / Amount(s) Used: Definity 2 cc Comments: Definity given 2D Dimensions IVSd 0.92 cm LA Volume 57.30 mL PWd 1.08 cm LA Volume Index 18.30 mL/m2 (M/F) 16-34 LVDd 2.85 cm M-Mode Dimensions RVDd 2.90 cm (0.9-2.6) LA Diam 3.68 cm (1.9-4.0) LVDd 4.39 cm (3.5-5.7) LVDs 3.10 cm (3.5-5.7) IVSd 1.77 cm (0.6-1.1) PWd 1.25 cm (0.6-1.1) EF (Teich) 56.50% FS 29.40% EDV (Teich) 87.20 mL TAPSE 2.41 (<1.7) ESV (Teich) 37.90 mL LV Diastology E Decel Time 220 (160-240 msec) E/A Ratio 0.73 MED A' 8.20 cm/s LAT A' 11.90 cm/s Aortic Valve AO Peak GR. 6.20 mmHg Mitral Valve MV E Max Peter. 57.0 (40-130 cm/s) MV A Velocity 78.0 (40-130 cm/s) E/A Ratio 0.73 MV PHT 64.0 ms Tricuspid Valve TR P. Velocity 195.00 cm/s RAP Estimate 10.00 mmHg RVSP 25.20 mmHg Left Ventricle The left ventricle is normal size. The left ventricular systolic function is normal. The left ventricular ejection fraction is within the normal range. There is increased overall thickness. There is normal LV segmental wall motion. Transmitral Doppler flow pattern suggests impaired LV relaxation. No left ventricle thrombus noted on this study. LVEF is 55%. Right Ventricle The right ventricle is normal size. The right ventricular systolic function is normal. Atria The left atrium size is normal. The right atrium size is normal. There is no Doppler evidence of interatrial shunt. Aortic Valve The aortic valve leaflets are not well-visualized. There is no aortic valvular stenosis. No aortic regurgitation is present. Mitral Valve The mitral valve is normal in structure. No evidence of mitral valve stenosis. Trace mitral regurgitation. Tricuspid Valve Tricuspid valve is grossly normal in structure and function. Trace tricuspid regurgitation. There is insufficient TR jet to estimate RVSP. Pulmonic Valve The pulmonic valve is not well-visualized. Great Vessels The aortic root is not well-visualized. The IVC is dilated. Pericardium There is no pericardial effusion. Other Information Study Quality: Technically Difficult Conclusion Technically difficult study due to poor acoustic windows. Normal biventricular systolic function. No significant valvular stenosis or regurgitation in the visualized valves. Electronically signed by : Tonia Bravo MD 01/24/2025 00:55:01
[2025-01-21] MEDS: METOPROLOL TARTRATE 50MG TABLET 50 MG PO (09:40)
[2025-01-21] MEDS: IVABRADINE HCL 7.5MG TABLET PO (09:40)
[2025-01-21 09:44] VITALS: BP 133/77; PULSE 86; RESP 18; TEMP 36.6; O2SAT 94
--- NOTE | 2025-01-21 10:00 | CT_ITS ---
APPROVED REPORT Psychologist Counseling: CLINICAL INDICATION Chest Pain TECHNIQUE Image Acquisition: A 128 slice MDCT scanner (GreenIQa View) was used for data acquisition. A noncontrast coronary calcium scan was performed. A CT attenuation threshold of 130 Hounsfield units (HU) was used for the detection of calcium in contiguous voxels of 1 sq mm in area to be counted as individual lesions. Bolus tracking in the ascending aorta with a threshold of 180 HU was performed. Immediately afterwards, ECG synchronized cardiac CT was then performed from the cardiac base to apex using retrospective gating with ECG tube current modulation. A total of 85 mL of Isovue 370 mg/mL contrast medium was administered at 5 mL/sec followed by a saline flush using a biphasic injection protocol. A tube voltage of 120 KVp was used. The patient received the following medications prior to the cardiac CT. 50 mg of oral metoprolol 15 mg of oral ivabradine The average heart rate at the time of acquisition was 72 bpm and regular. Image Reconstruction Transaxial images were reconstructed at 0.67 mm slide thickness. Data was reviewed interactively on an advanced workstation capable of 2 and 3-dimensional displays in all conventional reconstruction formats, including multiplanar reformations, maximum intensity projections, curved multiplanar reformations, and volume rendered reconstructions. When applicable, selected routine images describing the relevant coronary anatomy and pathology were saved and sent to PACS. Complications None Technical Quality Overall image quality was suboptimal due body habitus and significant blurring artifact Coronary artery opacification was suboptimal. Total DLP (Dose-Length Product) is 1782.0 mGy-cm. The reported value represents the total of one or more individual components during the CT acquisition of this date and at this time, and as such, the same value may appear in more than one CT report depending on the interpreting/reporting physicians. COMPARISON None FINDINGS CT Coronary Calcium Scoring LMA (Left Main Artery) = 0 LAD (Left Anterior Descending) = 0 LCX (Left Coronary Circumflex) = 0 RCA (Right Coronary Artery) = 0 Total Calcium Score = 0 using the AJ-130 method. The interpretation of the calcium heart score is based on the following continuum*: 0 = no calcified plaque detected (risk of coronary artery disease is very low ??? less than 5%) 1-10 = calcium detected in extremely minimal levels (risk of coronary diseases is still low ??? less than 10%) 11-100 = mild levels of plaque detected with certainty (mild or minimal narrowing of heart arteries is likely) 101-400 = definite,at least moderate levels of plaque detected (relatively high risk of a heart attack within 3-5 years) >401-999 = extensive levels of plaque detected (high risk of heart attack, high levels of vascular disease are present, high likelihood of at least one significant coronary narrowing) *The calcium heart score quantifies the burden of coronary calcification/plaque in the coronary arteries. The calcium heart score is not able to evaluate the presence or burden of non-calcified (i.e. soft) plaque. There is no identifiable calcification in the aortic valve, mitral annulus or mitral valve, pericardium, or myocardium. Coronary CT Angiography The coronary arterial system is left dominant. Quantitative Stenosis Grading: Left Main (LM): The left main originates normally from the left sinus of Valsalva. The LM bifurcates into the left anterior descending artery and left circumflex artery. The LM is patent with no evidence of atherosclerosis. Left Anterior Descending (LAD) and Diagonal Branches: The LAD is difficult to visualize. The LAD gives off 3 diagonal branch(es). Grossly, the LAD and its branches are patent with no evidence of atherosclerosis. There is no evidence of LAD-myocardial bridge. Left Circumflex (LCX) and Obtuse Marginals (OM): The LCX is difficult to visualize. The LCx gives off 2 Obtuse Marginal (OM) branch(es). Grossly, the LCX and its branches are patent with no evidence of atherosclerosis. Right Coronary Artery (RCA): The RCA is a small caliber vessel. The RCA originates normally from the right sinus of Valsalva. Grossly, the RCA and its branches are patent with no evidence of atherosclerosis. Non-Coronary Cardiac Findings: Analysis of the left ventricular (LV) structure and function was performed after 3-D reconstruction of the LV from axial images, with user-corrected automatic contouring for assessment of LV volumes and user-defined reconstruction from oblique planes for measurement of 3-D cardiac structure and function. -The left ventricle systolic function is normal. -There is no left atrial appendage filling defect. Two right pulmonary veins and two left pulmonary veins drain normally into the left atrium. -No pericardial thickening or calcification. -Central and branch pulmonary arteries in the [id number] are unremarkable. -Thoracic aorta within the visualized thoracic aortic-branches in the [id number] is unremarkable. Extracardiac Structures No significant extra-cardiac findings. Note, however, that this study is focused on the cardiac findings. IMPRESSION -Technically difficult study due to body habitus, and significant motion/blurring artifact. Some regions of the coronary tree are not well-visualized. This may affect diagnostic interpretation of the study findings. - Absence of coronary calcification with an Agatston score = 0 using the AJ-130 method. -Grossly, no evidence of significant flow-limiting atherosclerosis of the coronary arteries in the visualized segments. -CAD-RADS 0. Management recommendations per ACC/AHA guidelines*, as clinically appropriate. *Recommendations: CAD RADS 0: Reassurance. Consider non-atherosclerotic causes of chest pain. CAD RADS 1: Consider non-atherosclerotic causes of chest pain. Consider preventive therapy and risk factor modification. CAD RADS 2: Consider non-atherosclerotic causes of chest pain. Consider preventive therapy and risk factor modification, particularly for patients with nonobstructive plaque in multiple segments. CAD RADS 3: Consider further functional testing. Consider symptom-guided anti-ischemic and preventive pharmacotherapy as well as risk factor modification per published guideline statements. CAD RADS 4A: Consider further functional testing or invasive coronary angiography with revascularization per published guideline statements. Consider symptom-guided anti-ischemic and preventive pharmacotherapy as well as risk factor modification per published guideline statements. CAD RADS 4B: Invasive coronary angiography recommended with revascularization per published guideline statements. Consider symptom-guided anti-ischemic and preventive pharmacotherapy as well as risk factor modification per published guideline statements. CAD RADS 5: Consider invasive angiography and/or viability assessment with revascularization per published guideline statements. Consider symptom-guided anti-ischemic and preventive pharmacotherapy as well as risk factor modification per published guideline statements. CRITICAL RESULT None COMMUNICATION Per this written report The coronary and cardiac findings of this CCTA were reviewed, reported, and signed by Nitin Bravo MD ([employer]inery [employer]er) Conclusion Electronically signed by : Tonia Bravo MD 01/23/2025 21:21:20
[2025-01-21 10:55] VITALS: BP 112/78; PULSE 75; RESP 18; O2SAT 97
[2025-01-21 11:05] VITALS: BP 121/84; PULSE 74; RESP 17; O2SAT 94
[2025-01-21 11:10] VITALS: BP 116/81; PULSE 74; RESP 17; O2SAT 94
[2025-01-21] MEDS: IOPAMIDOL-370 (76%);100ML BOTTLE 85 ML IV (11:15)
[2025-01-21] MEDS: SODIUM CHLORIDE 0.9% 10ML SYR (RAD ONLY) 10 ML IV (11:15)
[2025-01-21] MEDS: 0.9 % SODIUM CHLORIDE 50 ML VIAL IV (11:15)
[2025-01-21] MEDS: DEFINITY US ECHO CONTRAST 2ML INJ 2 MG IV (11:58)
== END 2025-01-21 11:30 | disposition home or self-care (01) ==
LOC: RT 08:24
PROVIDERS: PCP Nurse Practitioner Family; Visit Provider Nurse Practitioner Family
DX: R60.0 Localized edema (principal); R06.09 Other forms of dyspnea; I27.20 Pulmonary hypertension, unspecified
CPT/HCPCS: 75574; 93306; Q9957; Q9967